=== PATIENT | female | born 1940 | race Caucasian/White ===

== ENCOUNTER → 2016-02-22 | Outpatient (CLI) | payer MEDICARE ==
[~2016-02-22] MED LIST: CARD180C5 PO; CITA20TA4 PO; D31000CA; DILT60TA33 PO; DOK100TA; GABA300C5 PO; HYDR200T3 PO; LISI-515 PO; PROT40TA PO; SPIR25TA PO; TRAZ50TA12 PO
[2016-02-22 11:58] LABS: AUTOMATED NEUTROPHIL # 2.5 TH/MM3 (1.8-7.7); BASOPHIL % 0.5 % (0.0-2.0); EOSINOPHIL # 0.1 TH/MM3 (0-0.4); EOSINOPHIL % 2.6 % (0.0-4.0); HEMATOCRIT 32.4 % (35.0-46.0); HEMO FLAGS DIFF FINAL; LYMPH % 29.3 % (9.0-44.0); LYMPHOCYTE # 1.2 TH/MM3 (1.0-4.8); MEAN CELL VOLUME 93.3 FL (80.0-100.0); MEAN CORPUSCULAR HEMOGLOBIN 30.7 PG (27.0-34.0); MEAN CORPUSCULAR HGB CONC 32.9 % (32.0-36.0); MONO % 7.5 % (0.0-8.0); NEUT % 60.1 % (16.0-70.0); PLATELET COUNT 197 TH/MM3 (150-450); RED BLOOD COUNT 3.48 MIL/MM3 (4.00-5.30); RED CELL DISTRIBUTION WIDTH 14.6 % (11.6-17.2); WHITE BLOOD COUNT 4.2 TH/MM3 (4.0-11.0)
[2016-02-22 12:18] LABS: WESTERGREN SEDIMENTATION RATE 13 mm/hr (0-30)
[2016-02-22 12:23] LABS: ANION GAP 5 MEQ/L (5-15); AST (GOT) 15 U/L (15-37); BICARBONATE 25.7 MEQ/L (21.0-32.0); BLOOD UREA NITROGEN 38 MG/DL (7-18); CHLORIDE 111 MEQ/L (98-107); GLOMERULAR FILTRATION RATE 30 ML/MIN (>89); POTASSIUM 5.1 MEQ/L (3.5-5.1); SODIUM (NA) 142 MEQ/L (136-145)
[2016-02-22 12:42] LABS: RHEUMATOID FACTOR TRIGGER LESS THAN 10.0 IU/ML (0.0-14.9)
[2016-02-22 13:04] LABS: ALKALINE PHOSPHATASE 60 U/L (45-117); ALT (GPT) 16 U/L (10-53); CREATINE KINASE 139 U/L (26-192); GLUCOSE,FASTING 81 MG/DL (74-99); TOTAL BILIRUBIN ADULT 0.5 MG/DL (0.2-1.0)
[2016-02-22 16:58] LABS: HEMOGLOBIN A1a 0.9 %; HEMOGLOBIN Ao 84.5 %; HEMOGLOBIN F 0.8 %; HEMOGLOBIN LA1C 2.2 %; HEMOGLOBIN P3 5.7 %
[2016-02-25 03:53] LABS: VITAMIN B6 10.3 ng/mL (2.1-21.7)
== END ==
LOC: PLAB 08:03
PROVIDERS: ATTEND Psychiatry & Neurology Neurology
DX: G64 Other disorders of peripheral nervous system (principal)
CPT/HCPCS: 36415; 80053; 82550; 82607; 83036; 84207; 84425; 85025; 85652; 86430